=== PATIENT | male | born 1975 | race Caucasian/White ===

== ENCOUNTER → 2016-11-23 | Outpatient (CLI) | payer BC ==
[~2016-11-23] MED LIST: DICY20TA57 PO
--- NOTE | 2016-11-23 16:54 | Diagnostic Imaging Report ---
PROCEDURE: MRI lumbar spine. TECHNIQUE: Multiplanar, multisequence MRI of the lumbar spine was performed without contrast. INDICATION: Pain near the coccyx and left leg tingling. FINDINGS: There is satisfactory alignment of the lumbar spine. The vertebral body heights are preserved. Disc heights are also preserved. No significant disc desiccation is seen. There is unremarkable marrow signal noted. The cauda equina and conus medullaris appear grossly unremarkable. There is mild facet joint hypertrophy seen in the mid to lower lumbar spine levels. There is however no disc herniation at any level. There is no central canal, lateral recess or neural foraminal narrowing at any level. The paraspinal soft tissues appear unremarkable. IMPRESSION: Mild hypertrophy of the facet joints in the mid and lower lumbar spine. No disc degeneration or herniation. No spinal canal or foraminal stenosis at any level. If the area of the lower sacrum or coccyx needs to be evaluated, then a dedicated sacrococcygeal MRI could be obtained. Dictated by: Dictated on workstation # [id number]
== END ==
LOC: RAD 13:02
PROVIDERS: ATTEND Nurse Practitioner Family
DX: M53.3 Sacrococcygeal disorders, not elsewhere classified (principal)
CPT/HCPCS: 72148